=== PATIENT | female | born 1945 | race Caucasian/White ===

== ENCOUNTER → 2017-08-07 | Outpatient (CLI) | payer MEDICARE ==
[~2017-08-07] MED LIST: ALPR-434 PO; ASPI-757 PO; CALC600T63 PO; DOCU-416 PO; LEVO88TA43 PO; OXYC-823 PO; VITA-324 PO; VITA400T7 PO; ZOLP-1 PO
--- NOTE | 2017-08-10 17:26 | RADIOLOGY IMAGING REPORT ---
[facility] PATIENT NAME: ASHLEY PATTERSON : [id number] MR: [id number] V: [id number] EXAM DATE: [id number] ORDERING PHYSICIAN: MAYNOR ARELLANO TECHNOLOGIST: Nadia Hernandes RDMS(ABD,OBGYN,BR),RVT EXAMINATION:TWO-DIMENSIONAL ECHOCARDIOGRAPH REASON:SADDLE EMBOLUSOF PULMONARY ARTERY 2D Measurements (normal values in centimeters) LV endLV endRV endVent.LV PostAorticLeftPercent DiastolicSystolicDiastolicSeptumWallRootAtriumShortening (3.5-5.7)(0.9-2.6)(0.6-1.1)(0.6-1.1)(2.0-3.7)(1.9-4.0)(25-35%) [id number]% STROKE VOLUME: 54ml ESTIMATED EJECTION FRACTION:63-66% LEFT VENTRICLE: Normal size & function, ejection fraction 60-65%, normal diastolic function. Septal motion does not show any evidence of volume or pressure overload. RIGHT VENTRICLE: Normal size & function. RIGHT ATRIUM: Normal size. LEFT ATRIUM: Normal size, no evidence of intra atrial shunting on Bubble study or by Color flow Doppler. AORTIC VALVE: Trileaflet, no evidence of significant stenosis, trace aortic regurgitation. PULMONIC VALVE: Poorly visualized, trace regurgitation, no significant stenosis. MITRAL VALVE: Normal structure & function, mild mitral regurgitation, no evidence of stenosis. TRICUSPID VALVE: Moderate tricuspid regurgitation without stenosis. RVSP estimated at 30-34mm Hg. PERICARDIUM: No evidence of pericardial effusion. EXTRACARDIAC SPACE: No evidence of pleural effusion. GREAT VESSELS: Aorta normal size without evidence of dissection or aneurysm. OVERALL IMPRESSION: 1. Ejection fraction 60-65% with no evidence of RV volume overload or pressure overload. 2. Moderate tricuspid regurgitation, RVSP 30-35mm Hg. 3. Negative Bubble study for intra atrial shunting. Dictated by: Cuco Sapp M.D. on 08/07/2017 at 17:58 Transcribed by: CHRISTIANA on 08/10/2017 at 7:25 Approved by: Cuco Sapp M.D. on 08/10/2017 at 17:24 [facility]
== END ==
LOC: US 00:04
PROVIDERS: ATTEND Internal Medicine
DX: I07.1 Rheumatic tricuspid insufficiency (principal)
CPT/HCPCS: 93306

== ENCOUNTER 2018-01-13 22:19 | Emergency (ER) | payer MEDICARE ==
[2018-01-13] MEDS ORDERED: NS(*) 0.9% 1000 ML BAG 1,000 ML IV ONE (22:47)
--- NOTE | 2018-01-13 22:47 | ER Report ---
History and Physical Time Seen By MD: 22:43 Hx. of Stated Complaint: pt was seen for flank pain yesterday by her pcp. was told it was a muscle strain. now the pain has moved to her abdomen. pt reports having a lot of diarrhea, cramping and blood in the stool. pt also nauseated. HPI/ROS CHIEF COMPLAINT: Abdominal pain, right flank pain HISTORY OF PRESENT ILLNESS: 72-year-old female presents ambulatory to the ER complaining of abdominal pain. She is seen by primary care and evaluated. It was thought she might have a musculoskeletal back pain on the right. Tonight She's having some rectal bleeding which concerns her. She presents to the ER for evaluation. She denies dysuria, frequency or hematuria. Patient denies previous abdominal surgery. She notes severe nausea but no vomiting. REVIEW OF SYSTEMS: Respiratory: No cough, no dyspnea. Cardiovascular: No chest pain, no palpitations. Gastrointestinal: As above Musculoskeletal: No back pain. Allergies: Coded Allergies: No Known Drug Allergies (Unverified , 01/25/17) Home Meds Active Scripts Ondansetron (ZOFRAN ODT) 4 Mg Tab.rapdis, 4 MG PO every 6 hours PRN for NAUSEA/VOMITING, #15 TAB TAKE 1 TABLET BY MOUTH EVERY 12 HOURS Prov:ARLEENROGELIO M DO 01/14/18 Reported Medications Docusate Sodium (COLACE) 100 Mg Capsule, 100 MG PO, CAPSULE 01/25/17 Aspirin (ASPIRIN) 325 Mg Tablet, 81 MG PO QDAY, TAB 01/25/17 Zolpidem Tartrate (AMBIEN) 5 Mg Tablet, 1 TAB PO QHS PRN for INSOMNIA TAKE ONE TABLET BY MOUTH AT BED TIME 12/15/13 Calcium Carbonate (CALCIUM) 600 Mg Tablet, 600 MG PO DAILY 12/15/13 Levothyroxine Sodium (SYNTHROID) 88 Mcg Tablet, 88 MCG PO QDAY 12/15/13 Discontinued Reported Medications Oxycodone Hcl (OXYCONTIN) 10 Mg Tab.er.12h, 10 MG PO, TAB 01/25/17 Reviewed Nurses Notes: Yes Old Medical Records Reviewed: Yes Hx Substance Use Disorder: No Hx Alcohol Use: No Constitutional Vital Sign - Last 24 Hours 01/13/18 01/13/18 01/13/18 01/13/18 22:25 22:30 23:00 23:30 Temp 97.5 Pulse 68 68 72 73 Resp 18 B/P (MAP) 161/86 150/82 (104) 144/97 (113) 146/86 (106) Pulse Ox 98 97 96 98 01/13/18 01/14/18 01/14/18 23:30 00:30 01:00 Pulse 73 78 B/P (MAP) 146/86 (106) 142/89 (106) 153/89 (110) Pulse Ox 98 94 94 Intake and Output 01/13/18 01/13/18 01/14/18 15:00 23:00 07:00 Intake Total 1000 ml Balance 1000 ml Physical Exam Vital signs stable, afebrile, pulse ox normal General Appearance: The patient is alert, has no immediate need for airway protection and no current signs of toxicity. Skin warm, dry, pink, mild distr ess Eyes: Pupils equal and round no injection. Anicteric sclera Respiratory: Chest is non tender, lungs are clear to auscultation. Cardiac: regular rate and rhythm Gastrointestinal: Abdomen is soft, moderate left upper quadrant tenderness, no rebound or guarding, no masses, bowel sounds normal. Musculoskeletal: Neck: Neck is supple and non tender. No lymphadenopathy Extremities have full range of motion and are non tender. No edema Skin: No rashes or lesions. DIFFERENTIAL DIAGNOSIS: After history and physical exam differential diagnosis was considered for abdominal pain including but not limited to appendicitis, cholecystitis, gastritis and urinary tract infection. Additionally, hemorr hoids, rectal bleeding, diverticular bleed, neoplasm, colitis, ulcerative colitis, Crohn's disease Medical Decision Making Data Points Result Diagram: 01/13/181 01/13/181 Laboratory Hematology Test 01/13/18 22:41 01/14/18 00:05 Red Blood Count 4.76 M/uL (4.17-5.56) Mean Corpuscular Volume 90.7 fL (80.0-96.0) Mean Corpuscular Hemoglobin 31.4 pg (26.0-33.0) Mean Corpuscular Hemoglobin Concent 34.6 g/dL (32.0-36.0) Red Cell Distribution Width 13.3 % (11.5-14.5) Mean Platelet Volume 9.1 fL (7.2-11.1) Neutrophils (%) (Auto) 72.5 % (39.4-72.5) Lymphocytes (%) (Auto) 17.1 % (17.6-49.6) Monocytes (%) (Auto) 6.9 % (4.1-12.4) Eosinophils (%) (Auto) 1.3 % (0.4-6.7) Basophils (%) (Auto) 2.2 % (0.3-1.4) Nucleated RBC Relative Count (auto) 0.1 /100WBC Neutrophils # (Auto) 7.9 K/uL (2.0-7.4) Lymphocytes # (Auto) 1.9 K/uL (1.3-3.6) Monocytes # (Auto) 0.8 K/uL (0.3-1.0) Eosinophils # (Auto) 0.1 K/uL (0.0-0.5) Basophils # (Auto) 0.2 K/uL (0.0-0.1) Nucleated RBC Absolute Count (auto) 0.01 K/uL Erythrocyte Sedimentation Rate 17 mm/HOUR (0-30) Prothrombin Time 12.8 seconds (12.0-14.4) Prothromb Time International Ratio 0.96 Activated Partial Thromboplast Time 32 seconds (23-35) Sodium Level 137 mmol/L (137-145) Potassium Level 3.8 mmol/L (3.5-5.0) Chloride Level 106 mmol/L (98-107) Carbon Dioxide Level 21 mmol/L (22-31) Blood Urea Nitrogen 20 mg/dl (7-18) Creatinine 0.90 mg/dl (0.52-1.04) Glomerular Filtration Rate Calc > 60.0 Random Glucose 144 mg/dl (75-110) Lactate 1.1 mmol/L (0.7-2.1) Calcium Level 9.6 mg/dl (8.4-10.2) Total Bilirubin 0.5 mg/dl (0.2-1.3) Aspartate Amino Transf (AST/SGOT) 35 U/L (0-35) Alanine Aminotransferase (ALT/SGPT) 46 U/L (0-56) Alkaline Phosphatase 87 U/L (0-126) C-Reactive Protein 1.4 mg/dl (<1.0) Total Protein 7.3 g/dl (6.3-8.2) Albumin 3.8 g/dl (3.5-5.0) Amylase Level 120 U/L (0-110) Lipase 53 U/L (23-300) Urine Color Yellow Urine Clarity Clear Urine pH 5.0 pH (4.8-9.5) Urine Specific Hurley 1.031 Urine Protein Negative mg/dL (NEGATIVE) Urine Glucose (UA) Negative mg/dL (NEGATIVE) Urine Ketones Negative mg/dL (NEGATIVE) Urine Blood Moderate (NEGATIVE) Urine Nitrite Negative (NEGATIVE) Urine Bilirubin Negative (NEGATIVE) Urine Urobilinogen Negative mg/dL (0.2-1.9) Urine Leukocyte Esterase Trace (NEGATIVE) Urine RBC 1 /HPF (0-2/HPF) Urine WBC 2 /HPF (0-5/HPF) Urine Squamous Epithelial Cells Few /LPF (</=FEW) Urine Calcium Oxalate Crystals Few /HPF (NONE) Urine Bacteria Negative /HPF (NONE-FEW) Urine Mucus Few /HPF (NONE-FEW) Chemistry Test 01/13/18 22:41 01/14/18 00:05 White Blood Count 11.0 k/uL (4.5-11.0) Red Blood Count 4.76 M/uL (4.17-5.56) Hemoglobin 14.9 g/dL (12.0-16.0) Hematocrit 43.2 % (34.0-47.0) Mean Corpuscular Volume 90.7 fL (80.0-96.0) Mean Corpuscular Hemoglobin 31.4 pg (26.0-33.0) Mean Corpuscular Hemoglobin Concent 34.6 g/dL (32.0-36.0) Red Cell Distribution Width 13.3 % (11.5-14.5) Platelet Count 345 K/uL (150-450) Mean Platelet Volume 9.1 fL (7.2-11.1) Neutrophils (%) (Auto) 72.5 % (39.4-72.5) Lymphocytes (%) (Auto) 17.1 % (17.6-49.6) Monocytes (%) (Auto) 6.9 % (4.1-12.4) Eosinophils (%) (Auto) 1.3 % (0.4-6.7) Basophils (%) (Auto) 2.2 % (0.3-1.4) Nucleated RBC Relative Count (auto) 0.1 /100WBC Neutrophils # (Auto) 7.9 K/uL (2.0-7.4) Lymphocytes # (Auto) 1.9 K/uL (1.3-3.6) Monocytes # (Auto) 0.8 K/uL (0.3-1.0) Eosinophils # (Auto) 0.1 K/uL (0.0-0.5) Basophils # (Auto) 0.2 K/uL (0.0-0.1) Nucleated RBC Absolute Count (auto) 0.01 K/uL Erythrocyte Sedimentation Rate 17 mm/HOUR (0-30) Prothrombin Time 12.8 seconds (12.0-14.4) Prothromb Time International Ratio 0.96 Activated Partial Thromboplast Time 32 seconds (23-35) Glomerular Filtration Rate Calc > 60.0 Lactate 1.1 mmol/L (0.7-2.1) Calcium Level 9.6 mg/dl (8.4-10.2) Total Bilirubin 0.5 mg/dl (0.2-1.3) Aspartate Amino Transf (AST/SGOT) 35 U/L (0-35) Alanine Aminotransferase (ALT/SGPT) 46 U/L (0-56) Alkaline Phosphatase 87 U/L (0-126) C-Reactive Protein 1.4 mg/dl (<1.0) Total Protein 7.3 g/dl (6.3-8.2) Albumin 3.8 g/dl (3.5-5.0) Amylase Level 120 U/L (0-110) Lipase 53 U/L (23-300) Urine Color Yellow Urine Clarity Clear Urine pH 5.0 pH (4.8-9.5) Urine Specific Hurley 1.031 Urine Protein Negative mg/dL (NEGATIVE) Urine Glucose (UA) Negative mg/dL (NEGATIVE) Urine Ketones Negative mg/dL (NEGATIVE) Urine Blood Moderate (NEGATIVE) Urine Nitrite Negative (NEGATIVE) Urine Bilirubin Negative (NEGATIVE) Urine Urobilinogen Negative mg/dL (0.2-1.9) Urine Leukocyte Esterase Trace (NEGATIVE) Urine RBC 1 /HPF (0-2/HPF) Urine WBC 2 /HPF (0-5/HPF) Urine Squamous Epithelial Cells Few /LPF (</=FEW) Urine Calcium Oxalate Crystals Few /HPF (NONE) Urine Bacteria Negative /HPF (NONE-FEW) Urine Mucus Few /HPF (NONE-FEW) Coagulation Test 01/13/18 22:41 Prothrombin Time 12.8 seconds Prothromb Time International Ratio 0.96 Activated Partial Thromboplast Time 32 seconds Urinalysis Test 01/14/18 00:05 Urine Color Yellow Urine Clarity Clear Urine pH 5.0 pH (4.8-9.5) Urine Specific Hurley 1.031 Urine Protein Negative mg/dL (NEGATIVE) Urine Glucose (UA) Negative mg/dL (NEGATIVE) Urine Ketones Negative mg/dL (NEGATIVE) Urine Blood Moderate (NEGATIVE) Urine Nitrite Negative (NEGATIVE) Urine Bilirubin Negative (NEGATIVE) Urine Urobilinogen Negative mg/dL (0.2-1.9) Urine Leukocyte Esterase Trace (NEGATIVE) Urine RBC 1 /HPF (0-2/HPF) Urine WBC 2 /HPF (0-5/HPF) Urine Squamous Epithelial Cells Few /LPF (</=FEW) Urine Calcium Oxalate Crystals Few /HPF (NONE) Urine Bacteria Negative /HPF (NONE-FEW) Urine Mucus Few /HPF (NONE-FEW) EKG/Imaging Imaging Results: CT scan of the abdomen and pelvis with IV contrast was obtained. The results of the study are EXAMINATION: CT abdomen and pelvis with IV contrast HISTORY: Left flank pain. Diarrhea. TECHNIQUE: Axial CT images of the abdomen and pelvis were obtained with IV co ntrast, with coronal and sagittal 2D reconstructed images. One of the following dose optimization techniques was utilized in the performance of this exam: Automated exposure control; adjustment of the mA and/or kV according to the patient's size; or use of an iterative reconstruction technique. Specific details can be referenced in the facility's radiology CT exam operational policy. Contrast: 75 mL of IV Isovue-370. COMPARISON: None. FINDINGS: Liver: Negative. Gallbladder and bile ducts: Negative. Spleen: Negative. Pancreas: Negative. Adrenal glands: Negative. Kidneys: Negative. No hydronephrosis or urinary calculi. Bowel and peritoneum: The small bowel bowel and colon are normal in caliber. No bowel obstruction. There is mild diffuse colonic wall thickening extending from the transverse colon to the proximal sigmoid colon, most compatible with a nonspecific infectious or inflammatory colitis. There are a few scattered colonic diverticula, without evidence of a localized diverticulitis. The colon is relatively decompressed, with minimal colonic stool. Small bowel loops are unremarkable by CT. No free fluid or free intraperitoneal air. Pelvic structures: Hysterectomy. Lymph node assessment: Negative. Vessels: Mild vascular calcifications. Normal caliber abdominal aorta. Musculoskeletal: No acute osseous findings. Scattered degenerative changes thr oughout the spine. There is moderate disc space narrowing at L2-L3 and L5-S1. Body wall: Negative. Lung bases: Negative. IMPRESSION: 1. There is mild diffuse colonic wall thickening extending from the transverse colon to the proximal sigmoid colon, most compatible with an infectious or inflammatory colitis. 2. There are a few scattered colonic diverticula, without evidence of a localized diverticulitis. 3. No other acute intra-abdominal findings. The study was read by the radiologist. I viewed the images myself on the PACS system. ED Course/Re-evaluation Clinical Indication for ER IV: Hydration, IV Access ED Course She was admitted to an examination room. H&P was done. The differential diagnoses was considered. Patient had a peripheral IV established and diagnostic studies were ordered. Patient had continued pain. A CT scan of the abdomen and pelvis was ordered with IV contrast. It shows extensive colitis of the left colon. Patient's advised to conservative treatment plan at home. She is discharged home on Zofran. Patient advised to follow-up with her primary care for referral for further diagnostic testing and evaluation. She will likely need colonoscopy with biopsies to rule out ulcerative colitis. A sedimentation rate and CRP were only mildly elevated. Decision to Disposition Date: Jan 14, 2018 Decision to Disposition Time: 00:54 Depart Departure Latest Vital Signs Vital Signs Date Time Temp Pulse Resp B/P (MAP) Pulse Ox O2 Delivery O2 Flow Rate FiO2 01/14/18 01:00 153/89 (110) 94 01/14/18 00:30 78 01/13/18 22:25 97.5 18 Core Temperature (Celsius): ??? Impression: Primary Impression: Colitis Additional Impressions: Nausea Rectal bleeding Condition: Improved Disposition: HOME OR SELF-CARE Referrals: GREGORIO RAZO PA-C (PCP) HAIM JUAN MD New Scripts Ondansetron (ZOFRAN ODT) 4 Mg Tab.rapdis 4 MG PO every 6 hours PRN for NAUSEA/VOMITING, #15 TAB TAKE 1 TABLET BY MOUTH EVERY 12 HOURS Prov: ROGELIO BACON DO 01/14/18 Patient Instructions: Clear Liquid Diet (ED), Colitis (ED) Additional Instructions: Follow clear liquid diet for 24-48 hours Follow-up with primary care for referral to specialty services Problem Qualifiers ROGELIO BACON DO Jan 13, 2018 22:47
[2018-01-13] MEDS ORDERED: ONDANSETRON 4 MG/2 ML VIAL IVP ONE (22:50)
[2018-01-13] MEDS ORDERED: fentaNYL CITR 100 MCG/2 ML AMP IVP ONE (22:50)
[2018-01-13 22:54] LABS: PLATELET COUNT, AUTOMATED 345 K/uL (150-450)
[2018-01-13 22:59] LABS: INR 0.96
[2018-01-13] MEDS ORDERED: IOPAMIDOL 76% 75 ML INFUS BTL 75 ML ONE (23:35)
--- NOTE | 2018-01-14 00:22 | RADIOLOGY IMAGING REPORT ---
FACILITY: [facility] [place] PATIENT NAME: Patricia García : 1945 MR: [id number] V: [id number] EXAM DATE: ORDERING PHYSICIAN: ROGELIO BACON TECHNOLOGIST: Location: [facility] - [place] Patient: Patricia García : 1945 Visit/Account:[id number] Date of Sevice: 01/13/2018 EXAMINATION: CT abdomen and pelvis with IV contrast HISTORY: Left flank pain. Diarrhea. TECHNIQUE: Axial CT images of the abdomen and pelvis were obtained with IV contrast, with coronal a nd sagittal 2D reconstructed images. One of the following dose optimization techniques was utilized in the performance of this exam: Autom ated exposure control; adjustment of the mA and/or kV according to the patient's size; or use of an i terative reconstruction technique. Specific details can be referenced in the facility's radiology C T exam operational policy. Contrast: 75 mL of IV Isovue-370. COMPARISON: None. FINDINGS: Liver: Negative. Gallbladder and bile ducts: Negative. Spleen: Negative. Pancreas: Negative. Adrenal glands: Negative. Kidneys: Negative. No hydronephrosis or urinary calculi. Bowel and peritoneum: The small bowel bowel and colon are normal in caliber. No bowel obstruction. T here is mild diffuse colonic wall thickening extending from the transverse colon to the proximal sigm oid colon, most compatible with a nonspecific infectious or inflammatory colitis. There are a few sca ttered colonic diverticula, without evidence of a localized diverticulitis. The colon is relatively d ecompressed, with minimal colonic stool. Small bowel loops are unremarkable by CT. No free fluid or f ree intraperitoneal air. Pelvic structures: Hysterectomy. Lymph node assessment: Negative. Vessels: Mild vascular calcifications. Normal caliber abdominal aorta. Musculoskeletal: No acute osseous findings. Scattered degenerative changes throughout the spine. Th ere is moderate disc space narrowing at L2-L3 and L5-S1. Body wall: Negative. Lung bases: Negative. IMPRESSION: 1. There is mild diffuse colonic wall thickening extending from the transverse colon to the proximal sigmoid colon, most compatible with an infectious or inflammatory colitis. 2. There are a few scattered colonic diverticula, without evidence of a localized diverticulitis. 3. No other acute intra-abdominal findings. Report Dictated By: Angel Dillon MD at 01/14/2018 12:09 AM Report E-Signed By: Angel Dillon MD at 01/14/2018 12:19 AM WSN:[id number]
[2018-01-14] MEDS ORDERED: ONDA4TAB PO (00:56)
[2018-01-14 01:00] VITALS: BP 153/89
[2018-01-14] MEDS ORDERED: ONDANSETRON 4 MG ODT TABDP SL ONE (01:00)
[2018-01-14] MEDS ORDERED: ACET/HYDROC 5/325MG TH ER ONLY 2 TAB/BOTTLE PO ONE (01:00)
== END 2018-01-14 01:28 | disposition home or self-care (01) ==
LOC: ER 22:45
DX: K52.9 Noninfective gastroenteritis and colitis, unspecified (principal); R11.0 Nausea; K62.5 Hemorrhage of anus and rectum
CPT/HCPCS: 74177; 81001; 82150; 83605; 83690; 85025; 85610; 85651; 85730; 86140; 96374; 96375; 99284; J2405; J3010; J7030; Q0162; Q9967; 82040; 82247; 82310; 82374; 82435; 82565; 82947; 84075; 84132; 84155; 84295; 84450; 84460; 84520; S0119

== ENCOUNTER 2018-02-11 02:37 | Day surgery (SDC) | payer MEDICARE ==
[~2018-02-11] VITALS: Ht 160 cm; Wt 54.9 kg
[~2018-02-11 02:37] MED LIST changes: +CHOL10005 PO; +CYAN25004 PO; +ONDA4TAB PO; +VITA100T4 PO
[2018-02-11 06:37] VITALS: BP 150/82
[2018-02-11] MEDS ORDERED: NORMOSOL R SOLN(*) 1000 ML BAG 1,000 ML IV PRN (06:45)
[2018-02-11] MEDS ORDERED: LIDOCAINE/SOD BICARB 8.4% SYR ID ONE (06:45)
[2018-02-11] MEDS ORDERED: LIDOCAINE MPF 1% 5 ML VIAL ONE (07:30)
[2018-02-11] MEDS ORDERED: PROPOFOL EMUL(*) 10MG/ML 20 ML 40 ML ONE (07:30)
[2018-02-11 08:12] VITALS: BP 121/72
[2018-02-11 08:30] VITALS: BP 129/81
[2018-02-11 08:54] VITALS: BP 147/95
[2018-02-11 08:55] VITALS: BP 140/96
== END 2018-02-11 09:18 | disposition home or self-care (01) ==
LOC: OR 02:37
PROVIDERS: ATTEND Family Medicine
DX: K57.30 Diverticulosis of large intestine without perforation or abscess without bleeding (principal); Z80.0 Family history of malignant neoplasm of digestive organs
CPT/HCPCS: 00812; G0121; J2001; J2704

== ENCOUNTER 2018-08-13 18:44 | Emergency (ER) | payer MEDICARE ==
--- NOTE | 2018-08-13 19:00 | ER Report ---
History and Physical Time Seen By MD: 19:00 Hx. of Stated Complaint: PAIN IN BACK OF LEFT CALF THAT STARTED A COUPLE DAYS AGO. STARTED A MILD PAIN, PROGRESSIVELT GETTING WORSE. HAS A HX OF BLOOD CLOTS AFTER HER KNEE SURGERY HPI/ROS CHIEF COMPLAINT: left calf pain HISTORY OF PRESENT ILLNESS: This is a 72 year old female. She has pain her left calf, started two days ago. Back of the calf and to the outside. No injury or instigating event. Worried because pain similar to her prior blood clot in right leg in the past after knee surgery. Not short of breath. No chest pain. Normal sensation. Hurts to walk and move. Allergies: Coded Allergies: timolol (Verified Allergy, Severe, EYE REDNESS AND SEVERE ITCHING, 08/13/18) Home Meds Reported Medications Vitamin E Mixed (VITAMIN E) 100 Unit Tablet, 100 UNIT PO DAILY 02/02/18 Cyanocobalamin (Vitamin B-12) (Vitamin B12) 2,500 Mcg Tablet, 1 TAB PO DAILY 02/02/18 Cholecalciferol (Vitamin D3) (VITAMIN D3) 1,000 Unit Tablet, 1000 UNIT PO DAILY, TAB 02/02/18 Aspirin (ASPIRIN) 325 Mg Tablet, 81 MG PO QDAY, TAB 01/25/17 Zolpidem Tartrate (AMBIEN) 5 Mg Tablet, 1 TAB PO QHS PRN for INSOMNIA TAKE ONE TABLET BY MOUTH AT BED TIME 12/15/13 Calcium Carbonate (CALCIUM) 600 Mg Tablet, 600 MG PO BID 12/15/13 Levothyroxine Sodium (SYNTHROID) 88 Mcg Tablet, 88 MCG PO QDAY 12/15/13 Reviewed Nurses Notes: Yes Hx Smoking: No Smoking Status: Never Smoker Exposure to Second Hand Smoke?: No Hx Substance Use Disorder: No Hx Alcohol Use: No Constitutional Vital Sign - Last 24 Hours 08/13/18 08/13/18 08/13/18 08/13/18 18:53 18:53 18:59 19:00 Temp 98.0 Pulse 91 84 Resp 14 B/P (MAP) 167/93 (117) 167/93 141/98 (112) Pulse Ox 93 92 08/13/18 08/13/18 08/13/18 08/13/18 19:14 19:29 19:30 19:44 Pulse 90 80 79 B/P (MAP) 155/91 (112) Pulse Ox 93 93 90 08/13/18 08/13/18 08/13/18 08/13/18 19:59 20:00 20:14 20:29 Pulse 86 87 85 B/P (MAP) 123/62 (82) Pulse Ox 92 95 94 08/13/18 20:30 B/P (MAP) 142/74 (96) Physical Exam General Appearance: Alert, no distress. Respiratory: Breathing easily, clear Cardiac: regular rate and rhythm Neuro: Normal sensation and movement of the left leg and foot. Musculoskeletal: Some pain with palpation of the back of the calf, extending a little laterally and behind the knee. No pain in the thigh. No pain in foot or ankle. Skin: No rashes or lesions. DIFFERENTIAL DIAGNOSIS: After history and physical exam differential diagnosis was considered for leg pain, uncertain etiology, patient worried about possible DVT. Medical Decision Making EKG/Imaging Imaging Venous Doppler ultrasound left lower extremity Indication: Left leg pain.. Comparison: None Available Findings: Duplex Doppler and color flow imaging was performed. The common femoral, femoral, and popliteal veins are all patent and compressible with normal Doppler wave forms. There are normal responses to augmentation. The posterior tibial and peroneal veins are patent in the calf. The proximal greater saphenous vein is also normal. The popliteal fossa of the soft tissues does show a Albarran's cyst measuring 6.7 x 1.3 x 4.0 cm. Subcutaneous tissues are otherwise unremarkable. IMPRESSION: 1. No evidence of deep venous thrombosis of the left lower extremity. 2. 6.7 cm left Albarran's cyst. Report Dictated By: Brandon London at 08/13/2018 8:31 PM ED Course/Re-evaluation ED Course Ultrasound obtained, shows a Albarran's cyst. This is likely the cause of her pain. No sign of DVT. Discussed the results with the patient. Recommended compression, ice, gentle range of motion and follow-up with her orthopedic surgeon as planned. Decision to Disposition Date: Aug 13, 2018 Decision to Disposition Time: 20:46 Depart Departure Latest Vital Signs Vital Signs Date Time Temp Pulse Resp B/P (MAP) Pulse Ox O2 Delivery O2 Flow Rate FiO2 08/13/18 20:30 142/74 (96) 08/13/18 20:29 85 94 08/13/18 18:53 98.0 14 Core Temperature (Celsius): ??? Impression: Primary Impression: Albarran cyst Condition: Improved Disposition: HOME OR SELF-CARE Referrals: GREGORIO RAZO PA-C (PCP) Patient Instructions: Bakers Cyst (ED) Additional Instructions: You can use Tylenol or ibuprofen as needed for pain. Apply ice 20 minutes every 1-2 hours while awake. An PENG wrap can be used for compression to help reduce swelling. Rest the injured area, keep it elevated while at rest. Follow-up with the orthopedic surgeon as planned. Problem Qualifiers Primary Impression: Albarran cyst Laterality: left Qualified Codes: M71.22 - Synovial cyst of popliteal space [Albarran], left knee BRIGITTEMICHAEL RICE MD Aug 13, 2018 19:00
[2018-08-13 20:30] VITALS: BP 142/74
--- NOTE | 2018-08-13 20:37 | RADIOLOGY IMAGING REPORT ---
FACILITY: [facility] PATIENT NAME: Patricia García : 1945 MR: [id number] V: [id number] EXAM DATE: ORDERING PHYSICIAN: MICHAEL BRIGGS TECHNOLOGIST: [place] [facility] [place] Garc[place] : 1945 Visit/Account:[id number] Date of Sevice: 08/13/2018 Venous Doppler ultrasound left lower extremity Indication: Left leg pain.. Comparison: None Available Findings: Duplex Doppler and color flow imaging was performed. The common femoral, femoral, and popl iteal veins are all patent and compressible with normal Doppler wave forms. There are normal respons es to augmentation. The posterior tibial and peroneal veins are patent in the calf. The proximal greater saphenous vein is also normal. The popliteal fossa of the soft tissues does show a Albarran's cyst measuring 6.7 x 1.3 x 4.0 cm. Subcut aneous tissues are otherwise unremarkable. IMPRESSION: 1. No evidence of deep venous thrombosis of the left lower extremity. 2. 6.7 cm left Albarran's cyst. Report Dictated By: Brandon London at 08/13/2018 8:31 PM Report E-Signed By: Brandon London at 08/13/2018 8:33 PM WSN:[id number]
== END 2018-08-13 20:53 | disposition home or self-care (01) ==
LOC: ER 19:12
DX: M71.22 Synovial cyst of popliteal space [Baker], left knee (principal)
CPT/HCPCS: 99284